=== PATIENT | female | born 1995 | race Hispanic/Latino ===

== ENCOUNTER 2019-01-03 13:00 | Emergency (ER) | payer SELFPAY ==
[2019-01-03 14:26] VITALS: BP 102/62
--- NOTE | 2019-01-03 14:28 | Emergency Department Report ---
Blank Doc - Documentation Documentation: 23 y o presents cc of abd pain with recent posite home upt on tuesday. states opain is causing her to be nautious. LMP 11/12/18 denied vag blleed,d/c dysuria labs ordered revaluate
[2019-01-03 15:29] LABS: Bilirubin,Urine NEG (Negative); Blood,Urine NEG (Negative); Color,Urine Yellow (Yellow); Mucus,Urine FEW /HPF; Protein,Urine <15 mg/dL mg/dL (Negative); RBC,Urine < 1.0 /HPF (0.0-6.0); Urobilinogen,Urine < 2.0 mg/dL (<2.0)
== END 2019-01-03 15:24 | disposition home or self-care (01) ==
LOC: ED 13:00
DX: O26.891 Other specified pregnancy related conditions, first trimester (principal); R10.9 Unspecified abdominal pain; Z3A.01 Less than 8 weeks gestation of pregnancy; Z53.21 Procedure and treatment not carried out due to patient leaving prior to being seen by health care provider
CPT/HCPCS: 36415; 81001; 84703